=== PATIENT | female | born 1970 ===

== ENCOUNTER 2021-03-06 08:26 | Emergency (ER) | payer OTHER ==
--- NOTE | 2021-03-06 10:19 | XRay Report ---
LEFT FOOT 3 VIEW(S) INDICATION / CLINICAL INFORMATION: injury COMPARISON: None available. FINDINGS: BONES / JOINT(S): There are fractures through the second third and fourth metatarsal bases. No signif icant arthritis. SOFT TISSUES: There is dorsal soft tissue swelling. ADDITIONAL FINDINGS: None. LEFT ANKLE 3 VIEW(S) INDICATION / CLINICAL INFORMATION: injury COMPARISON: None available. FINDINGS: BONES / JOINT(S): No acute fracture or subluxation. No significant arthritis. SOFT TISSUES: No significant abnormality. ADDITIONAL FINDINGS: None. Signer Name: Chuck Barrera DO Signed: 03/06/2021 10:15 AM Workstation Name: [id number]
--- NOTE | 2021-03-06 10:27 | Emergency Department Report ---
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 Patient states that she slipped on the grass in her yard. She states since then she has had right foot pain, swelling, bruising. She denies ever injuring in the past. She states that she has been limping to get around and whenever she bears weight it increases her pain. She denies any numbness or weakness and is still able to move the toes. No past medical history. No allergies to medications. - Related Data Previous Rx's Medication Instructions Recorded Last Taken Type Acetaminophen/Codeine [Tylenol 1 tab PO Q6H PRN #12 tab 03/06/21 Unknown Rx /Codeine # 3 tab] Ibuprofen [Motrin 600 MG tab] 600 mg PO Q8H PRN #20 tablet 03/06/21 Unknown Rx Allergies Allergy/AdvReac Type Severity Reaction Status Date / Time No Known Allergies Allergy Unverified 03/06/21 09:07 ED Review of Systems ROS: Stated complaint: LEFT FOOT INJURY Other details as noted in HPI Comment: All other systems reviewed and negative ED Past Medical Hx - Past Medical History Previous Medical History?: No - Medications Home Medications: Home Medications Medication Instructions Recorded Confirmed Last Taken Type Acetaminophen/Codeine [Tylenol 1 tab PO Q6H PRN #12 tab 03/06/21 Unknown Rx /Codeine # 3 tab] Ibuprofen [Motrin 600 MG tab] 600 mg PO Q8H PRN #20 tablet 03/06/21 Unknown Rx ED Physical Exam - General Limitations: Language Barrier General appearance: alert, in no apparent distress - Head Head exam: Present: atraumatic, normocephalic - Eye Eye exam: Present: normal appearance - ENT ENT exam: Present: mucous membranes moist - Extremities Exam Extremities exam: Present: other (there is moderate edema to the left dorsal foot, ttp overlying the dorsal foot, there is ecchymosis present, no ttp of the ankle or overlying the achiles tendon, decreased ROM of the foot secondary to pain, no obvious deformity, neurovascularly intact) - Neurological Exam Neurological exam: Present: alert, oriented X3 - Psychiatric Psychiatric exam: Present: normal affect, normal mood - Skin Skin exam: Present: warm, dry, intact ED Course Vital Signs 03/06/21 03/06/21 09:08 11:46 Temperature 98.5 F 98.3 F Pulse Rate 81 99 H Respiratory 18 16 Rate Blood Pressure 142/90 Blood Pressure 140/88 [Right] O2 Sat by Pulse 97 99 Oximetry ED Lower Extremity MDM - Radiology Data Radiology results: report reviewed Ordering Physician: SOCO RUBIN Date of Service: 03/06/21 Procedure(s): XR foot 3+V LT Accession Number(s): [id number] cc: SOCO RUBIN Fluoro Time In Minutes: LEFT FOOT 3 VIEW(S) INDICATION / CLINICAL INFORMATION: injury COMPARISON: None available. FINDINGS: BONES / JOINT(S): There are fractures through the second third and fourth metatarsal bases. No significant arthritis. SOFT TISSUES: There is dorsal soft tissue swelling. ADDITIONAL FINDINGS: None. LEFT ANKLE 3 VIEW(S) INDICATION / CLINICAL INFORMATION: injury COMPARISON: None available. FINDINGS: BONES / JOINT(S): No acute fracture or subluxation. No significant arthritis. SOFT TISSUES: No significant abnormality. ADDITIONAL FINDINGS: None. Signer Name: Chuck Barrera DO Signed: 03/06/2021 10:15 AM Workstation Name: [id number] Transcribed By: SUYAPA Dictated By: CHUCK BARRERA DO Electronically Authenticated By: CHUCK BARRERA DO Signed Date/Time: 03/06/21 1015 DD/ 1012 TD/TT: - Medical Decision Making fiona, secretary to the vice president used for Vietnamese interpretation Patient is a 50-year-old female presents emergency room with complaints of a left foot injury that occurred 3 days ago. Patient states that she slipped on the grass in her yard. She states since then she has had right foot pain, swelling, bruising. She denies ever injuring in the past. She states that she has been limping to get around and whenever she bears weight it increases her pain. She denies any numbness or weakness and is still able to move the toes. No past medical history. No allergies to medications. Vitals are stable. On exam:there is moderate edema to the left dorsal foot, ttp overlying the dorsal foot, there is ecchymosis present, no ttp of the ankle or overlying the achiles tendon, decreased ROM of the foot secondary to pain, no obvious deformity, neurovascularly intact. XR left ankle: BONES / JOINT(S): No acute fracture or subluxation. No significant arthritis. SOFT TISSUES: No significant abnormality. ADDITIONAL FINDINGS: None. XR left foot: BONES / JOINT(S): There are fractures through the second third and fourth metatarsal bases. No significant arthritis. SOFT TISSUES: There is dorsal soft tissue swelling. ADDITIONAL FINDINGS: None. Discussed all results with patient answered questions. Patient placed in posterior splint and given crutches and remain neurovascularly intact. Advised patient Please take medication as prescribed as needed. Do not bear weight on the leg. Follow-up with orthopedic doctor. Return to emergency room for any new or worsening symptoms. Critical care attestation.: If time is entered above; I have spent that time in minutes in the direct care of this critically ill patient, excluding procedure time. ED Disposition Clinical Impression: Fracture of 2nd metatarsal Qualifiers: Encounter type: initial encounter Fracture type: closed Fracture alignment: nondisplaced Laterality: left Qualified Code(s): S92.325A - Nondisplaced fracture of second metatarsal bone, left foot, initial encounter for closed fracture Fracture of 3rd metatarsal Qualifiers: Encounter type: initial encounter Fracture type: closed Fracture alignment: nondisplaced Laterality: left Qualified Code(s): S92.335A - Nondisplaced fracture of third metatarsal bone, left foot, initial encounter for closed fracture Disposition: DC- TO HOME OR SELFCARE Is pt being admited?: No Does the pt Need Aspirin: No Condition: Stable Instructions: Metatarsal Fracture Additional Instructions: Please take medication as prescribed as needed. Do not bear weight on the leg. Follow-up with orthopedic doctor. Return to emergency room for any new or wor sening symptoms. [place] la medicacin prescrita segn sea necesario. No apoye peso sobre la pierna. Seguimiento con mdico ortopdico. Regrese a la regina de emergencias por cualquier sntoma nuevo o que empeore. Prescriptions: Ibuprofen [Motrin 600 MG tab] 600 mg PO Q8H PRN #20 tablet PRN Reason: Pain, Moderate (4-6) Acetaminophen/Codeine [Tylenol /Codeine # 3 tab] 1 tab PO Q6H PRN #12 tab PRN Reason: Pain , Severe (7-10) Referrals: IDALIA DINERO MD [Staff Physician] - 3-5 Days [facility] [Provider Group] - 3-5 Days Time of Disposition: 10:25 Print Language: SLOV[place]
[2021-03-06 11:47] VITALS: BP 140/88
== END 2021-03-06 11:47 | disposition home or self-care (01) ==
LOC: ED 08:26
DX: S92.335A Nondisplaced fracture of third metatarsal bone, left foot, initial encounter for closed fracture (principal); S92.325A Nondisplaced fracture of second metatarsal bone, left foot, initial encounter for closed fracture; Z79.899 Other long term (current) drug therapy; W01.0XXA Fall on same level from slipping, tripping and stumbling without subsequent striking against object, initial encounter; Y93.89 Activity, other specified; Y92.096 Garden or yard of other non-institutional residence as the place of occurrence of the external cause; Y99.8 Other external cause status